=== PATIENT | male | born 1950 ===

== ENCOUNTER 2017-10-24 12:13 | Inpatient (IN) | payer MEDICARE ==
--- NOTE | 2017-10-24 12:36 | C.PDOC ---
History Of Present Illness 66 yr old male brought in via BLS, presents to the ER for possible witness seizure. Patient is accompanied by daughter who states the patient was in the living room and the seizure was witness was witness by the nephew. Daughter states the patient was on the sofa and started drooling and was not responding to questions but eventually started to come around but still didn't answer any questions. Patient is visiting from [facility] and doesn't have a PMD, smokes everyday and doesn't take any medications. Currently patient denies chest pain, SOB, nausea, vomiting, weakness or numbness. Patient is Italian speaking, information obtained via daughter. Time Seen by Provider: 10/24/17 12:19 Chief Complaint (Nursing): Seizure History Per: Patient, Family (Daughter) History/Exam Limitations: no limitations Recent Seizure Activity Began: Just Before Arrival Number Of Seizures: One Length Of Seizures (Duration): Unknown Past Medical History Reviewed: Historical Data, Nursing Documentation, Vital Signs Vital Signs: Last Vital Signs Temp 98 F 10/24/17 15:17 Pulse 60 10/24/17 17:00 Resp 16 10/24/17 17:00 BP 136/82 10/24/17 17:00 Pulse Ox 96 10/24/17 17:00 Family History: States: No Known Family Hx - Social History Hx Alcohol Use: Yes Hx Substance Use: No - Immunization History Hx Tetanus Toxoid Vaccination: No Hx Influenza Vaccination: No Hx Pneumococcal Vaccination: No Review Of Systems Except As Marked, All Systems Reviewed And Found Negative. Cardiovascular: Negative for: Chest Pain Respiratory: Negative for: Shortness of Breath Gastrointestinal: Negative for: Nausea, Vomiting Neurological: Negative for: Weakness, Numbness Physical Exam - Physical Exam Appears: Non-toxic, No Acute Distress Skin: Warm, Dry, No Rash Head: Atraumatic, Normacephalic Eye(s): bilateral: Normal Inspection, PERRL, EOMI Oral Mucosa: Moist Tongue: Normal Appearing, No Bite Lips: Normal Appearing Neck: Normal, Normal ROM, Supple Cardiovascular: Rhythm Regular, No Murmur Respiratory: Normal Breath Sounds, No Rales, No Rhonchi, No Stridor, No Wheezing Gastrointestinal/Abdominal: Normal Exam, Soft, No Tenderness, No Guarding, No Rebound Extremity: Normal ROM, No Swelling Neurological/Psych: Oriented x3, Normal Speech, Normal Motor, Normal Sensation ED Course And Treatment - Laboratory Results Result Diagrams: 10/24/17 12:59 10/24/17 12:59 ECG: Interpreted By Me, Viewed By Me ECG Rhythm: Sinus Rhythm (w/ 1st degree AV block) Rate From EC (BPM) O2 Sat by Pulse Oximetry: 99 (RA) Pulse Ox Interpretation: Normal Interpretation Of Abnormal: Normal intervals. No ST/T wave abnormalities. - Radiology CXR: Viewed By Me, Read By Radiologist CXR Interpretation: Yes: No Acute Disease - CT Scan/US CT - Head Other Rad Studies (CT/US): Read By Radiologist, Radiology Report Reviewed CT/US Interpretation: PROCEDURE: CT HEAD WITHOUT CONTRAST. HISTORY: seizure. COMPARISON: None available. TECHNIQUE: Axial computed tomography images were obtained through the head/brain without intravenous contrast. Radiation dose: Total exam DLP = 852.98 mGy-cm. This CT exam was performed using one or more of the following dose reduction techniques: Automated exposure control, adjustment of the mA and/or kV according to patient size, and/or use of iterative reconstruction technique. FINDINGS: HEMORRHAGE: No intracranial hemorrhage. BRAIN: No mass effect or edema. No atrophy or chronic microvascular ischemic changes. VENTRICLES: Unremarkable. No hydrocephalus. CALVARIUM: Unremarkable. PARANASAL SINUSES: Complete opacification of the left frontal sinus. Moderate mucosal thickening in the ethmoid sinuses. MASTOID AIR CELLS: Right mastoid and middle ear effusion suspicious for otomastoiditis P. OTHER FINDINGS: None. IMPRESSION: No evidence of acute intracranial hemorrhage intracranial collection mass effect or midline shift. Findings suggestive of sinusitis with complete opacification of the left frontal and partial opacification of the ethmoid sinuses. Effusion in the right mastoid and middle ear suspicious for otomastoiditis. CTA - Neck/Brain Other Rad Studies (CT/US): Read By Radiologist, Radiology Report Reviewed CT/US Interpretation: PROCEDURE: CT Angiography of the neck and Brain. HISTORY : seizure activity. COMPARISON: None available. TECHNIQUE: CT angiography of the intracranial arteries was performed. Coronal and sagittal maximum intensity projection reformated images were generated. This CT exam was performed using one or more of the following dose reduction techniques: Automated exposure control, adjustment of the mA and/or kV according to patient size, and/or use of iterative reconstruction technique. FINDINGS: CTA of the neck: The aortic arch demonstrate mild aneurysmal changes with the ascending thoracic aorta measures up to 4.5 centimeter in the transverse diameter. The main branches of the aortic arch are patent. There is common origin of the right brachiocephalic artery and left common carotid artery. The common carotid arteries are patent demonstrate normal shape. There are atherosclerotic calcifications seen at the left carotid bifurcation without evidence of significant stenosis. There is no evidence of significant stenosis in the cervical portion of the internal carotid arteries. Punctate calcification are noted at the petrous and cavernous as well at supraclinoid portion of the internal carotid arteries without evidence of significant stenosis. INTERNAL CEREBRAL ARTERIES: Suboptimal opacification of the intracranial arteries. The skull base, petrous, cavernous and supraclinoid segments are bilaterally widely patent. ANTERIOR CEREBRAL ARTERIES: A1 and A2 segments are patent. Smaller distal branches unremarkable, as visualized. MIDDLE CEREBRAL ARTERIES: Unremarkable. M1 and M2 segments are widely patent. Perisylvian branches grossly symmetric. POSTERIOR CIRCULATION: Basilar Artery : Unremarkable. Distal Vertebral Arteries: Unremarkable. Posterior Cerebral Arteries: There is a origin of the left posterior cerebral artery. Posterior Inferior Cerebellar Arteries: Unremarkable. ANEURYSM/ VASCULAR MALFORMATIONS: None. OTHER FINDINGS: None. IMPRESSION: Suboptimal study with suboptimal opacification of the carotid and intracranial arteries. No evidence of focal significant vascular stenosis or occlusion. [id number] atherosclerotic disease associated with scattered calcified plaques. Sinuses mucosal disease. Mild aneurysmal changes noted at the ascending thoracic aorta and aortic arch. Progress Note: 1500: patient is admited to hospitalist for new onset seizure. Case is discussed with Dr. Quevedo. Medical Decision Making Medical Decision Making: IMPRESSION: New onset seizure PLAN: * CT - Angiochest, Head * CXR * EKG * Troponin * CBC * CMP * Urinalysis Disposition Discussed With Dr.: Janet Benson Doctor Will See Patient In The: ED Counseled Patient/Family Regarding: Diagnosis - Disposition Disposition Time: 14:52 Condition: FAIR - Clinical Impression Clinical Impression: Seizure - Scribe Statement The provider has reviewed the documentation as recorded by the Emilyibgeovany Araiza Provider Attestation: All medical record entries made by the Emilyibgeovany were at my direction and personally dictated by me. I have reviewed the chart and agree that the record accurately reflects my personal performance of the history, physical exam, medical decision making, and the department course for this patient. I have also personally directed, reviewed, and agree with the discharge instructions and disposition.
[2017-10-24 13:02] LABS: BASO # 0.1 K/uL (0.0-0.2); BASO % 0.6 % (0.0-2.0); EOS # 0.1 K/uL (0.0-0.7); EOS % 0.8 % (0.0-4.0); HEMOGLOBIN 15.1 g/dL (12.0-18.0); LYMPH # 2.4 K/uL (1.0-4.3); LYMPH % 25.9 % (20.0-40.0); MEAN CELL VOLUME 96.9 fL (80.0-94.0); MEAN CORPUSCULAR HEMOGLOBIN 33.1 pg (27.0-31.0); MEAN CORPUSCULAR HGB CONC 34.1 g/dL (33.0-37.0); MEAN PLATELET VOLUME 7.7 fL (7.2-11.7); MONO # 0.6 K/uL (0.0-0.8); NEUT # 6.2 K/uL (1.8-7.0); NEUT % 66.7 % (50.0-75.0); NRBC % 0.1 % (0.0-2.0); RBC 4.57 Mil/uL (4.40-5.90); RED CELL DISTRIBUTION WIDTH 13.4 % (11.5-14.5); WHITE BLOOD COUNT 9.4 K/uL (4.8-10.8)
[2017-10-24 13:08] LABS: URINE BILIRUBIN NEGATIVE (NEGATIVE); URINE BLOOD NEGATIVE (NEGATIVE); URINE CLARITY Clear (Clear); URINE COLOR Yellow (YELLOW); URINE GLUCOSE (UA) NORMAL (Normal); URINE LEUKOCYTE ESTERASE NEG Leu/uL (Negative); URINE NITRATE NEGATIVE (NEGATIVE); URINE PROTEIN 2+ mg/dL (NEGATIVE); URINE UROBILINOGEN NORMAL mg/dL (0.2-1.0)
[2017-10-24 13:15] LABS: ALB/GLOB RATIO 1.3 (1.0-2.1); ALBUMIN 4.2 g/dL (3.5-5.0); ALT/SGPT 46 U/L (21-72); AST/SGOT 25 U/L (17-59); BLOOD UREA NITROGEN 15 mg/dL (9-20); CALCIUM 8.8 mg/dl (8.6-10.4); GFR AFRICAN-AMERICAN > 60; GFR NON-AFRICAN AMERICAN > 60
[2017-10-24] MEDS ORDERED: Iodixanol 320 MG/ML 100 ML BOTTLE IV ONE (13:35)
--- NOTE | 2017-10-24 14:34 | CT ---
PROCEDURE: CT HEAD WITHOUT CONTRAST. HISTORY: seizure COMPARISON: None available. TECHNIQUE: Axial computed tomography images were obtained through the head/brain without intravenous contrast. Radiation dose: Total exam DLP = 852.98 mGy-cm. This CT exam was performed using one or more of the following dose reduction techniques: Automated exposure control, adjustment of the mA and/or kV according to patient size, and/or use of iterative reconstruction technique. FINDINGS: HEMORRHAGE: No intracranial hemorrhage. BRAIN: No mass effect or edema. No atrophy or chronic microvascular ischemic changes. VENTRICLES: Unremarkable. No hydrocephalus. CALVARIUM: Unremarkable. PARANASAL SINUSES: Complete opacification of the left frontal sinus. Moderate mucosal thickening in the ethmoid sinuses. MASTOID AIR CELLS: Right mastoid and middle ear effusion suspicious for otomastoiditis P OTHER FINDINGS: None. IMPRESSION: No evidence of acute intracranial hemorrhage intracranial collection mass effect or midline shift. Findings suggestive of sinusitis with complete opacification of the left frontal and partial opacification of the ethmoid sinuses. Effusion in the right mastoid and middle ear suspicious for otomastoiditis.
--- NOTE | 2017-10-24 14:50 | CT ---
PROCEDURE: CT Angiography of the neck and Brain. HISTORY: seizure activity COMPARISON: None available. TECHNIQUE: CT angiography of the intracranial arteries was performed. Coronal and sagittal maximum intensity projection reformated images were generated. This CT exam was performed using one or more of the following dose reduction techniques: Automated exposure control, adjustment of the mA and/or kV according to patient size, and/or use of iterative reconstruction technique. FINDINGS: CTA of the neck: The aortic arch demonstrate mild aneurysmal changes with the ascending thoracic aorta measures up to 4.5 centimeter in the transverse diameter. The main branches of the aortic arch are patent. There is common origin of the right brachiocephalic artery and left common carotid artery. The common carotid arteries are patent demonstrate normal shape. There are atherosclerotic calcifications seen at the left carotid bifurcation without evidence of significant stenosis. There is no evidence of significant stenosis in the cervical portion of the internal carotid arteries. Punctate calcification are noted at the petrous and cavernous as well at supraclinoid portion of the internal carotid arteries without evidence of significant stenosis. INTERNAL CEREBRAL ARTERIES: Suboptimal opacification of the intracranial arteries. The skull base, petrous, cavernous and supraclinoid segments are bilaterally widely patent. ANTERIOR CEREBRAL ARTERIES: A1 and A2 segments are patent. Smaller distal branches unremarkable, as visualized. MIDDLE CEREBRAL ARTERIES: Unremarkable. M1 and M2 segments are widely patent. Perisylvian branches grossly symmetric. POSTERIOR CIRCULATION: Basilar Artery: Unremarkable. Distal Vertebral Arteries: Unremarkable. Posterior Cerebral Arteries: There is a origin of the left posterior cerebral artery Posterior Inferior Cerebellar Arteries: Unremarkable. ANEURYSM/ VASCULAR MALFORMATIONS: None. OTHER FINDINGS: None. IMPRESSION: Suboptimal study with suboptimal opacification of the carotid and intracranial arteries. No evidence of focal significant vascular stenosis or occlusion. [id number] atherosclerotic disease associated with scattered calcified plaques. Sinuses mucosal disease. Mild aneurysmal changes noted at the ascending thoracic aorta and aortic arch.
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
--- NOTE | 2017-10-24 17:08 | RAD ---
PROCEDURE: CHEST RADIOGRAPH, 1 VIEW HISTORY: Seizure COMPARISON: None available. FINDINGS: LUNGS: No evidence of focal infiltrate or consolidation in the lungs P PLEURA: No pneumothorax or pleural fluid seen. CARDIOVASCULAR: The cardiac silhouette is normal in size. Left-sided pacemaker is seen in place. OSSEOUS STRUCTURES: No significant abnormalities. VISUALIZED UPPER ABDOMEN: Normal. OTHER FINDINGS: None. IMPRESSION: No active disease.
[2017-10-24 18:27] LABS: BARBITURATES, UR NEGATIVE (NEGATIVE); BENZODIAZEPINES, UR NEGATIVE (NEGATIVE); OPIATES, UR NEGATIVE (NEGATIVE); PHENCYCLIDINE, UR NEGATIVE (NEGATIVE)
[2017-10-24 18:33] LABS: CK-MB 1.25 ng/mL (0.0-3.38); TROPONIN I 0.043 ng/mL (0.00-0.120)
[2017-10-24 18:38] LABS: PROLACTIN 8.7 ng/mL (3.7-17.9)
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
[2017-10-24 22:25] LABS: TROPONIN I 0.029 ng/mL (0.00-0.120)
[2017-10-24 22:27] LABS: CK-MB 1.58 ng/mL (0.0-3.38)
[2017-10-25 01:45] VITALS: RESP 20
[2017-10-25] MEDS ORDERED: Iodixanol 320 MG/ML 100 ML BOTTLE IV ONE (02:46)
--- NOTE | 2017-10-25 03:27 | CT ---
EXAM: CT Angiography Chest With Intravenous Contrast CLINICAL HISTORY: 66 years old, male; Signs and symptoms; Other: Elevated d dimer TECHNIQUE: Axial computed tomographic angiography images of the chest with intravenous contrast using pulmonary embolism protocol. All CT scans at this facility use one or more dose reduction techniques, viz.: automated exposure control; ma/kV adjustment per patient size (including targeted exams where dose is matched to indication; i.e. head); or iterative reconstruction technique. MIP reconstructed images were created and reviewed. Coronal and sagittal reformatted images were created and reviewed. CONTRAST: 100 mL of [id number] administered intravenously. COMPARISON: No relevant prior studies available. FINDINGS: Pulmonary arteries: No pulmonary embolism. Aorta: Ectasia of ascending thoracic aorta, up to 4.2 cm in diameter. Minimal atherosclerotic disease. Inferior vena cava: Retrograde filling of IVC and hepatic veins. Lungs: Mild mosaic pattern of lung parenchyma. Minimal interlobular septal thickening. Minimal peripheral atelectasis/scarring. Few pulmonary nodules, up to 0.5 cm. Pleural space: No significant effusion. No pneumothorax. Heart: No cardiomegaly. No significant pericardial effusion. Coronary artery calcifications. Bones/joints: No acute fracture. Soft tissues: Minimal gynecomastia. Lymph nodes: No pathologically enlarged lymph nodes. Gallbladder and bile ducts: Vicarious excretion of contrast. Kidneys and ureters: Mild stranding about kidneys, nonspecific. Probable large RIGHT renal cyst. Few probable small LEFT renal cysts. Probable small hyperdense LEFT renal cyst. Tubes, lines and devices: LEFT pacemaker. IMPRESSION: 1. No CT evidence of pulmonary embolism. 2. Possible early interstitial edema. Clinical correlation is needed. 3. Pulmonary nodules. For low-risk patients, no follow-up is necessary. For high-risk patients (smoking history or other known risk factors) an optional CT at 12 months could be performed. 4. Incidental/non-acute findings are described above.
--- NOTE | 2017-10-25 11:39 | VASCLAB ---
PROCEDURE: HISTORY: Syncope COMPARISON: None available. TECHNIQUE: Grayscale and duplex Doppler evaluation of the cervical carotid and vertebral arteries were performed. The common carotid, carotid bifurcations and cervical Internal Carotid Artery (ICA) and proximal External Carotid Artery (ECA) were evaluated. The vertebral arteries were evaluated for gross patency and flow direction. Report prepared by SKIP Sharma FINDINGS: RIGHT CAROTID ARTERIES: 1. Common Carotid Artery: No significant focal plaque formation of the right common carotid artery. Maximum Peak Systolic velocity: 187 cm/sec: End-diastolic velocity 20 cm/sec. 2. Carotid Bifurcation: Homogeneous plaque formation. Maximum Peak Systolic velocity: 61 cm/sec: End-diastolic velocity 10 cm/sec. 3. Internal Carotid Artery: Plaque description: 3.1. Proximal Segment: Peak systolic velocity 70 cm/sec: End-diastolic velocity 27 cm/sec - % stenosis 0-15% 3.2. Middle Segment: Peak systolic velocity 39 cm/sec: End-diastolic velocity 14 cm/sec - % stenosis 0-15% 3.3. Distal Segment: Peak systolic velocity 41 cm/sec: End-diastolic velocity 15 cm/sec - % stenosis 0-15% 4. External Carotid Artery: No significant focal plaque formation. Peak systolic velocity 77 cm/sec 5. ICA/CCA Ratio: 1.1 LEFT CAROTID ARTERIES: 1. Common Carotid Artery: No significant focal plaque formation of the left common carotid artery. Maximum Peak Systolic velocity: 117 cm/sec: End-diastolic velocity 22 cm/sec. 2. Carotid Bifurcation: Homogeneous plaque formation. Maximum Peak Systolic velocity: 53 cm/sec: End-diastolic velocity 9 cm/sec. 3. Internal Carotid Artery: Plaque description: 3.1. Proximal Segment: Peak systolic velocity 47 cm/sec: End-diastolic velocity 16 cm/sec - % stenosis 0-15% 3.2. Middle Segment: Peak systolic velocity 61 cm/sec: End-diastolic velocity 20 cm/sec - % stenosis 0-15% 3.3. Distal Segment: Peak systolic velocity 47 cm/sec: End-diastolic velocity 15 cm/sec - % stenosis 0-15% 4. External Carotid Artery: No significant focal plaque formation. Peak systolic velocity 100 cm/sec 5. ICA/CCA Ratio: 1.2 VERTEBRAL ARTERIES: 1. Right Vertebral Artery: The right vertebral artery flow direction is antegrade. 2. Left Vertebral Artery: The left vertebral artery flow direction is antegrade. OTHER FINDINGS: 1. Right Brachial Blood pressure: 120 mmHg. 2. Left Brachial Blood pressure: 120 mmHg. IMPRESSION: RIGHT: Duplex scan does not suggest hemodynamically significant stenosis of the right extracranial carotid arteries. LEFT: Duplex scan does not suggest hemodynamically significant stenosis of the left extracranial carotid arteries.
[2017-10-25 12:38] LABS: BASO # 0.1 K/uL (0.0-0.2); BASO % 0.8 % (0.0-2.0); EOS % 0.3 % (0.0-4.0); HEMOGLOBIN 14.5 g/dL (12.0-18.0); LYMPH # 2.9 K/uL (1.0-4.3); MEAN CELL VOLUME 96.4 fL (80.0-94.0); MEAN CORPUSCULAR HEMOGLOBIN 33.2 pg (27.0-31.0); MEAN CORPUSCULAR HGB CONC 34.4 g/dL (33.0-37.0); MEAN PLATELET VOLUME 8.3 fL (7.2-11.7); MONO # 0.6 K/uL (0.0-0.8); MONO % 5.3 % (0.0-10.0); NEUT # 7.1 K/uL (1.8-7.0); NEUT % 66.6 % (50.0-75.0); RBC 4.37 Mil/uL (4.40-5.90); RED CELL DISTRIBUTION WIDTH 13.2 % (11.5-14.5); WHITE BLOOD COUNT 10.6 K/uL (4.8-10.8)
--- NOTE | 2017-10-25 12:49 | CT ---
PROCEDURE: CT HEAD WITHOUT CONTRAST. HISTORY: new onset seizure COMPARISON: Noncontrast head CT performed 10/24/17 TECHNIQUE: Axial computed tomography images were obtained through the head/brain without intravenous contrast. Radiation dose: Total exam DLP = 805.76 mGy-cm. This CT exam was performed using one or more of the following dose reduction techniques: Automated exposure control, adjustment of the mA and/or kV according to patient size, and/or use of iterative reconstruction technique. FINDINGS: HEMORRHAGE: No intracranial hemorrhage. BRAIN: Diffuse atrophy with prominence of the ventricles and sulci noted. No mass effect or edema. Scattered periventricular and subcortical white matter hypodensities, which are nonspecific, but often seen with chronic microvascular ischemic disease. Please note that MRI with diffusion imaging is more sensitive in the detection of acute ischemic event. VENTRICLES: No hydrocephalus. CALVARIUM: Unremarkable. PARANASAL SINUSES: Fluid within the left frontal sinus and left anterior ethmoid air cells. The remainder the visualized paranasal sinuses appear unremarkable. MASTOID AIR CELLS: Partial opacification of the right mastoid air cells; correlate clinically for mastoiditis. OTHER FINDINGS: Probable small fluid within the right middle ear. IMPRESSION: Generalized atrophy. Nonspecific white matter changes. Partial opacification of the right mastoid air cells. Probable small fluid within the right middle ear. Correlate clinically for otomastoiditis. Fluid within the left frontal sinus and left anterior ethmoid air cells. Correlate clinically for acute sinusitis.
[2017-10-25 13:07] LABS: ALB/GLOB RATIO 1.3 (1.0-2.1); ALT/SGPT 34 U/L (21-72); AST/SGOT 24 U/L (17-59); BLOOD UREA NITROGEN 12 mg/dL (9-20); CALCIUM 8.4 mg/dl (8.6-10.4); GFR AFRICAN-AMERICAN > 60; GFR NON-AFRICAN AMERICAN > 60
[2017-10-25 16:32] VITALS: BP 129/78; PULSE 50; TEMP 98.1; O2SAT 96
--- NOTE | 2017-10-25 16:39 | CP.PCM.PN ---
Subjective - Date & Time of Evaluation Date of Evaluation: 10/25/17 Time of Evaluation: 16:37 - Subjective Subjective: Mr. Richmond was seen and examined at the bedside. He is alert. oriented in all spheres. He denies any headache, dizziness, lightheadedness, nausea, or vomiting. He is able to answer questions appropriately and follow simple commands such as finger to nose test, field accommodation, strength test. He denies any seizure-like activity. There was no untoward events overnight. Objective - Vital Signs/Intake and Output Vital Signs (last 24 hours): Temp Pulse Resp BP Pulse Ox 98.1 F 50 L 20 129/78 96 10/25/17 16:31 10/25/17 16:31 10/25/17 16:31 10/25/17 16:31 10/25/17 16:31 - Medications Medications: Current Medications Aspirin (Ecotrin) 81 mg PO DAILY [facility] Last Admin: 10/25/17 10:32 Dose: 81 mg Famotidine (Pepcid) 20 mg PO BID [facility] Last Admin: 10/25/17 10:33 Dose: 20 mg Heparin Sodium (Porcine) (Heparin) 5,000 units SC Q8 [facility] Last Admin: 10/25/17 14:17 Dose: 5,000 units Levetiracetam (Keppra) 500 mg PO BID [facility] Last Admin: 10/25/17 10:33 Dose: Not Given - Labs Labs: 10/25/17 12:31 10/25/17 12:31 - Constitutional Appears: No Acute Distress - Head Exam Head Exam: NORMAL INSPECTION - Neurological Exam Neurological Exam: Alert, Awake, CN II-XII Intact, Normal Gait, Oriented x3 Neuro motor strength exam: Left Upper Extremity: 5, Right Upper Extremity: 5, Left Lower Extremity: 5, Right Lower Extremity: 5 Additional comments: e is able to answer questions appropriately and follow simple commands such as finger to nose test, field accommodation, strength test. He is able to answer questions appropriately and follow simple commands such as finger to nose test, field accommodation, strength test. Sensation remains intact.
--- NOTE | 2017-10-25 19:11 | CP.PCM.DIS ---
<Devon Taylor - Last Filed: 10/25/17 19:01> Provider - Provider Date of Admission: 10/24/17 18:44 Attending physician: Janet Benson MD Consults: Cardio - Dr. Yañez Neuro - Dr. Quevedo Time Spent in preparation of Discharge (in minutes): 45 Hospital Course - Lab Results Lab Results: Most Recent Lab Values WBC 10.6 K/uL (4.8-10.8) 10/25/17 12:31 RBC 4.37 Mil/uL (4.40-5.90) L 10/25/17 12:31 Hgb 14.5 g/dL (12.0-18.0) 10/25/17 12:31 Hct 42.1 % (35.0-51.0) 10/25/17 12:31 MCV 96.4 fL (80.0-94.0) H 10/25/17 12:31 MCH 33.2 pg (27.0-31.0) H 10/25/17 12:31 MCHC 34.4 g/dL (33.0-37.0) 10/25/17 12:31 RDW 13.2 % (11.5-14.5) 10/25/17 12:31 Plt Count 210 K/uL (130-400) 10/25/17 12:31 MPV 8.3 fL (7.2-11.7) 10/25/17 12:31 Neut % (Auto) 66.6 % (50.0-75.0) 10/25/17 12: Lymph % (Auto) 27.0 % (20.0-40.0) 10/25/17 12:31 [place] % (Auto) 5.3 % (0.0-10.0) 10/25/17 12:31 Eos % (Auto) 0.3 % (0.0-4.0) 10/25/17 12:31 Baso % (Auto) 0.8 % (0.0-2.0) 10/25/17 12:31 Neut # 7.1 K/uL (1.8-7.0) H 10/25/17 12:31 Lymph # 2.9 K/uL (1.0-4.3) 10/25/17 12:31 [place] # 0.6 K/uL (0.0-0.8) 10/25/17 12:31 Eos # 0.0 K/uL (0.0-0.7) 10/25/17 12:31 Baso # 0.1 K/uL (0.0-0.2) 10/25/17 12:31 D-Dimer, Quantitative 446 ng/mlDDU (0-243) H 10/25/17 01:43 Sodium 133 mmol/L (132-148) 10/25/17 12:31 Potassium 4.2 mmol/L (3.6-5.2) 10/25/17 12:31 Chloride 99 mmol/L (98-107) 10/25/17 12:31 Carbon Dioxide 25 mmol/L (22-30) 10/25/17 12:31 Anion Gap 13 (10-20) 10/25/17 12:31 BUN 12 mg/dL (9-20) 10/25/17 12:31 Creatinine 0.8 mg/dL (0.8-1.5) 10/25/17 12:31 Est GFR ( Amer) > 60 10/25/17 12:31 Est GFR (Non-Af Amer) > 60 10/25/17 12:31 POC Glucose (mg/dL) 128 mg/dL (65-110) H 10/24/17 20:53 Random Glucose 120 mg/dL (75-110) H 10/25/17 12:31 Hemoglobin A1c 5.8 % (4.2-6.5) 10/25/17 12:31 Calcium 8.4 mg/dl (8.6-10.4) L 10/25/17 12:31 Total Bilirubin 0.9 mg/dL (0.2-1.3) 10/25/17 12:31 AST 24 U/L (17-59) 10/25/17 12:31 ALT 34 U/L (21-72) 10/25/17 12:31 Alkaline Phosphatase 81 U/L (38-126) 10/25/17 12:31 Total Creatine Kinase 88 U/L (55-170) 10/24/17 21:58 CK-MB (Mass) 1.58 ng/mL (0.0-3.38) 10/24/17 21:58 Troponin I 0.0290 ng/mL (0.00-0.120) 10/24/17 21:58 Total Protein 6.9 g/dL (6.3-8.3) 10/25/17 12:31 Albumin 4.0 g/dL (3.5-5.0) 10/25/17 12:31 Globulin 2.9 gm/dL (2.2-3.9) 10/25/17 12:31 Albumin/Globulin Ratio 1.3 (1.0-2.1) 10/25/17 12:31 Triglycerides 90 mg/dL (0-149) 10/25/17 12:31 Cholesterol 189 mg/dL (0-199) 10/25/17 12:31 LDL Cholesterol Direct 142 mg/dL (0-129) H 10/25/17 12:31 HDL Cholesterol 31 mg/dL (30-70) 10/25/17 12:31 Free T4 1.01 ng/dL (0.78-2.19) 10/25/17 12:31 TSH 3rd Generation 1.22 mIU/L (0.46-4.68) 10/25/17 12:31 Prolactin 8.7 ng/mL (3.7-17.9) 10/24/17 17:57 Urine Color Yellow (YELLOW) 10/24/17 12:59 Urine Clarity Clear (Clear) 10/24/17 12:59 Urine pH 6.0 (5.0-8.0) 10/24/17 12:59 Ur Specific Robinson 1.016 (1.003-1.030) 10/24/17 12:59 Urine Protein 2+ mg/dL (NEGATIVE) H 10/24/17 12:59 Urine Glucose (UA) Normal mg/dL (Normal) 10/24/17 12:59 Urine Ketones Negative mg/dL (NEGATIVE) 10/24/17 12:59 Urine Blood Negative (NEGATIVE) 10/24/17 12:59 Urine Nitrate Negative (NEGATIVE) 10/24/17 12:59 Urine Bilirubin Negative (NEGATIVE) 10/24/17 12:59 Urine Urobilinogen Normal mg/dL (0.2-1.0) 10/24/17 12:59 Ur Leukocyte Esterase Neg Suzy/uL (Negative) 10/24/17 12:59 Urine WBC (Auto) 2 /hpf (0-5) 10/24/17 12:59 Urine RBC (Auto) 3 /hpf (0-3) 10/24/17 12:59 Hyaline Casts 3-5 /lpf (0-2) H 10/24/17 12:59 Urine Opiates Screen Negative (NEGATIVE) 10/24/17 18:01 Urine Methadone Screen Negative (NEGATIVE) 10/24/17 18:01 Ur Barbiturates Screen Negative (NEGATIVE) 10/24/17 18:01 Ur Phencyclidine Scrn Negative (NEGATIVE) 10/24/17 18:01 Ur Amphetamines Screen Negative (NEGATIVE) 10/24/17 18:01 U Benzodiazepines Scrn Negative (NEGATIVE) 10/24/17 18:01 U Oth Cocaine Metabols Negative (NEGATIVE) 10/24/17 18:01 U Cannabinoids Screen Negative (NEGATIVE) 10/24/17 18:01 - Hospital Course Hospital Course: CC: Syncope vs Seizure Patient is a 66 yo generally healthy [place] male presenting with an episode of altered mental status. According to the patient's daughter, the patient was resting on the sofa when he started foaming at the mouth During this episode, he was unresponsive to basic commands and it seemed to the patient's daughter hewas trying to push people away, which the daughter believed was involuntary. This episode lasted approximately 5 minutes after which patient was confused for about 10 minutes and then resumed his baseline level of consciousness. Patient states that currently he feels fine and this has never happened to him before. Patient denies urinary/bowel incontinence, chest pain, N/V, weakness, numbness. Patient's mother had a history of an unspecified syncope disorder where she would intermittently "pass out," especially during stressful time periods. However, she at the age of 90 and was otherwise unaffected by these syncopal episodes. Patient's daughter says his father had a pacemaker placed in 2002 because he "passed out". Patient was started on Keppra. Carotid US showed no stenosis, CT chest was negative for PE. Head/Neck CTA showed no significant stenosis or occlusion, mild to moderate artherosclerosis, and mild thoracic aneurysm. ECHO results still pending. Patient has been told to follow up with machine mover at [facility] to check on pacemaker/defibrillator. EKG showed sinus bradycardia. Episode was likely from a seizure. Patient has had no symptoms since admission. He is stable for discharge per medicine and neurology team. Patient sent home with the following instructions: 1). Please have the following prescriptions filled at your Pharmacy: Aspirin 81 mg, 1 tablet by mouth 1x/day (breakfast), Disp #30, NO refills Keppra 500 mg, 1 tablet by mouth 2x/day (breakfast and dinner), Disp #30, NO refills 2). You CAN NOT drive a car until you are cleared by a Neurologist. 3). You must follow up with your Collaborating Supervising Physician at [facility] as soon as possible PRIOR to your return to [facility] this coming Wednesday for a check of your Pacemaker/Defibrillator as your Daughter has stated that you failed to follow for check/change of battery for over 7 years. 4). You will need to be followed by your Primary Care Physician in [place] for the following: Consultation with Ear, Nose and Throat physician for further evaluation of Sinusitis/Mastoiditis Consultation with Vascular Surgeon for repeat of CT Scan of Chest in 6 months to make sure that the Thoracic Aneurysm has not grown in size You will also need a repeat CT Scan of Chest in 6 months to make sure that the nodules in your lungs have not changed considering your long history of smoking. Consultation with Neurologist to make sure that you are seizure free PRIOR to driving a car again. 5). You have been provided with a copy of the reports for all of your radiology studies. Please bring these with you to your appointment with your primary care physician in [facility]. 6). You must stop smoking. 7). Please take care and be well - Date & Time of H&P Date of H&P: 10/25/17 Time of H&P: 12:00 Discharge Exam - Head Exam Head Exam: ATRAUMATIC, NORMAL INSPECTION, NORMOCEPHALIC - Eye Exam Eye Exam: EOMI, Normal appearance Pupil Exam: PERRL - ENT Exam ENT Exam: Mucous Membranes Moist - Respiratory Exam Respiratory Exam: Clear to PA & Lateral. absent: Rales, Rhonchi, Wheezes - Cardiovascular Exam Cardiovascular Exam: RRR, +S1, +S2 - GI/Abdominal Exam GI & Abdominal Exam: Normal Bowel Sounds, Soft. absent: Tenderness - Extremities Exam Extremities exam: normal capillary refill, normal inspection - Neurological Exam Neurological exam: Alert, Oriented x3 - Psychiatric Exam Psychiatric exam: Normal Affect, Normal Mood - Skin Skin Exam: Dry, Intact, Normal Color, Warm Discharge Plan - Discharge Medications Prescriptions: Aspirin [Ecotrin] 81 mg PO DAILY #30 tabec levETIRAcetam [Keppra] 500 mg PO BID #60 tab - Follow Up Plan Condition: FAIR Disposition: HOME/ ROUTINE Instructions: Aspirin (By mouth), Levetiracetam (By mouth), New-Onset Seizure in Adults (DC) Additional Instructions: 1). Please have the following prescriptions filled at your Pharmacy: Aspirin 81 mg, 1 tablet by mouth 1x/day (breakfast), Disp #30, NO refills Keppra 500 mg, 1 tablet by mouth 2x/day (breakfast and dinner), Disp #30, NO refills 2). You CAN NOT drive a car until you are cleared by a Neurologist. 3). You must follow up with your Collaborating Supervising Physician at [facility] as soon as possible PRIOR to your return to [facility] this coming Wednesday for a check of your Pacemaker/Defibrillator as your Daughter has stated that you failed to follow for check/change of battery for over 7 years. 4). You will need to be followed by your Primary Care Physician in [facility] for the following: Consultation with Ear, Nose and Throat physician for further evaluation of Sinusitis/Mastoiditis Consultation with Vascular Surgeon for repeat of CT Scan of Chest in 6 months to make sure that the Thoracic Aneurysm has not grown in size You will also need a repeat CT Scan of Chest in 6 months to make sure that the nodules in your lungs have not changed considering your long history of smoking. Consultation with Neurologist to make sure that you are seizure free PRIOR to driving a car again. 5). You have been provided with a copy of the reports for all of your radiology studies. Please bring these with you to your appointment with your primary care physician in [place]. 6). You must stop smoking. 7). Please take care and be well. Referrals: Rolando Quevedo MD [Staff Provider] - <Samir Wheeler - Last Filed: 10/25/17 21:56> Provider - Provider Date of Admission: 10/24/17 18:44 Attending physician: Janet Benson MD Hospital Course - Lab Results Lab Results: Most Recent Lab Values WBC 10.6 K/uL (4.8-10.8) 10/25/17 12:31 RBC 4.37 Mil/uL (4.40-5.90) L 10/25/17 12:31 Hgb 14.5 g/dL (12.0-18.0) 10/25/17 12:31 Hct 42.1 % (35.0-51.0) 10/25/17 12:31 MCV 96.4 fL (80.0-94.0) H 10/25/17 12:31 MCH 33.2 pg (27.0-31.0) H 10/25/17 12:31 MCHC 34.4 g/dL (33.0-37.0) 10/25/17 12:31 RDW 13.2 % (11.5-14.5) 10/25/17 12:31 Plt Count 210 K/uL (130-400) 10/25/17 12:31 MPV 8.3 fL (7.2-11.7) 10/25/17 12:31 Neut % (Auto) 66.6 % (50.0-75.0) 10/25/17 12:31 Lymph % (Auto) 27.0 % (20.0-40.0) 10/25/17 12:31 [place] % (Auto) 5.3 % (0.0-10.0) 10/25/17 12:31 Eos % (Auto) 0.3 % (0.0-4.0) 10/25/17 12:31 Baso % (Auto) 0.8 % (0.0-2.0) 10/25/17 12:31 Neut # 7.1 K/uL (1.8-7.0) H 10/25/17 12:31 Lymph # 2.9 K/uL (1.0-4.3) 10/25/17 12:31 [place] # 0.6 K/uL (0.0-0.8) 10/25/17 12:31 Eos # 0.0 K/uL (0.0-0.7) 10/25/17 12:31 Baso # 0.1 K/uL (0.0-0.2) 10/25/17 12:31 D-Dimer, Quantitative 446 ng/mlDDU (0-243) H 10/25/17 01:43 Sodium 133 mmol/L (132-148) 10/25/17 12:31 Potassium 4.2 mmol/L (3.6-5.2) 10/25/17 12:31 Chloride 99 mmol/L (98-107) 10/25/17 12:31 Carbon Dioxide 25 mmol/L (22-30) 10/25/17 12:31 Anion Gap 13 (10-20) 10/25/17 12:31 BUN 12 mg/dL (9-20) 10/25/17 12:31 Creatinine 0.8 mg/dL (0.8-1.5) 10/25/17 12:31 Est GFR ( Amer) > 60 10/25/17 12:31 Est GFR (Non-Af Amer) > 60 10/25/17 12:31 POC Glucose (mg/dL) 128 mg/dL (65-110) H 10/24/17 20:53 Random Glucose 120 mg/dL (75-110) H 10/25/17 12:31 Hemoglobin A1c 5.8 % (4.2-6.5) 10/25/17 12:31 Calcium 8.4 mg/dl (8.6-10.4) L 10/25/17 12:31 Total Bilirubin 0.9 mg/dL (0.2-1.3) 10/25/17 12:31 AST 24 U/L (17-59) 10/25/17 12:31 ALT 34 U/L (21-72) 10/25/17 12:31 Alkaline Phosphatase 81 U/L (38-126) 10/25/17 12:31 Total Creatine Kinase 88 U/L (55-170) 10/24/17 21:58 CK-MB (Mass) 1.58 ng/mL (0.0-3.38) 10/24/17 21:58 Troponin I 0.0290 ng/mL (0.00-0.120) 10/24/17 21:58 Total Protein 6.9 g/dL (6.3-8.3) 10/25/17 12:31 Albumin 4.0 g/dL (3.5-5.0) 10/25/17 12:31 Globulin 2.9 gm/dL (2.2-3.9) 10/25/17 12:31 Albumin/Globulin Ratio 1.3 (1.0-2.1) 10/25/17 12:31 Triglycerides 90 mg/dL (0-149) 10/25/17 12:31 Cholesterol 189 mg/dL (0-199) 10/25/17 12:31 LDL Cholesterol Direct 142 mg/dL (0-129) H 10/25/17 12:31 HDL Cholesterol 31 mg/dL (30-70) 10/25/17 12:31 Free T4 1.01 ng/dL (0.78-2.19) 10/25/17 12:31 TSH 3rd Generation 1.22 mIU/L (0.46-4.68) 10/25/17 12:31 Prolactin 8.7 ng/mL (3.7-17.9) 10/24/17 17:57 Urine Color Yellow (YELLOW) 10/24/17 12:59 Urine Clarity Clear (Clear) 10/24/17 12:59 Urine pH 6.0 (5.0-8.0) 10/24/17 12:59 Ur Specific Robinson 1.016 (1.003-1.030) 10/24/17 12:59 Urine Protein 2+ mg/dL (NEGATIVE) H 10/24/17 12:59 Urine Glucose (UA) Normal mg/dL (Normal) 10/24/17 12:59 Urine Ketones Negative mg/dL (NEGATIVE) 10/24/17 12:59 Urine Blood Negative (NEGATIVE) 10/24/17 12:59 Urine Nitrate Negative (NEGATIVE) 10/24/17 12:59 Urine Bilirubin Negative (NEGATIVE) 10/24/17 12:59 Urine Urobilinogen Normal mg/dL (0.2-1.0) 10/24/17 12:59 Ur Leukocyte Esterase Neg Suzy/uL (Negative) 10/24/17 12:59 Urine WBC (Auto) 2 /hpf (0-5) 10/24/17 12:59 Urine RBC (Auto) 3 /hpf (0-3) 10/24/17 12:59 Hyaline Casts 3-5 /lpf (0-2) H 10/24/17 12:59 Urine Opiates Screen Negative (NEGATIVE) 10/24/17 18:01 Urine Methadone Screen Negative (NEGATIVE) 10/24/17 18:01 Ur Barbiturates Screen Negative (NEGATIVE) 10/24/17 18:01 Ur Phencyclidine Scrn Negative (NEGATIVE) 10/24/17 18:01 Ur Amphetamines Screen Negative (NEGATIVE) 10/24/17 18:01 U Benzodiazepines Scrn Negative (NEGATIVE) 10/24/17 18:01 U Oth Cocaine Metabols Negative (NEGATIVE) 10/24/17 18:01 U Cannabinoids Screen Negative (NEGATIVE) 10/24/17 18:01 Attending/Attestation - Attestation I have personally seen and examined this patient.: Yes I have fully participated in the care of the patient.: Yes I have reviewed all pertinent clinical information, including history, physical exam and plan: Yes Notes (Text): 10/25/17 21:55 Exam, assessment and plan and discharge instructions were thoroughly gone over with the resident. I went over the instructions with patient's daughter at length. Samir Wheeler D.O.
--- NOTE | 2017-10-25 21:07 | CARD ---
APPROVED REPORT EXAM: Two-dimensional and M-mode echocardiogram with Doppler and color Doppler. Other Information Quality : GoodRhythm : INDICATION Syncope Surgery/Intervention Pacemaker: 2D DIMENSIONS IVSd0.8 (0.7-1.1cm)LVDd4.9 (3.9-5.9cm) LVOT Diameter2.4 (1.8-2.4cm)PWd0.9 (0.7-1.1cm) LVDs2.5 (2.5-4.0cm)FS (%) 47.8 % LVEF (%)79.1 (>50%) M-Mode DIMENSIONS Left Atrium (MM)3.69 (2.5-4.0cm)Aortic Root3.53 (2.2-3.7cm) Aortic Cusp Exc.2.03 (1.5-2.0cm) Aortic Valve AoV Peak Xcysvkkp896.9cm/sAoV VTI52.2cmAO Peak GR.20mmHg LVOT Peak Nzeeqenx417.1cm/sLVOT VTI28.00cmAO Mean GR.10mmHg PAULA (VMAX)2.49ht0QES (VTI)2.73lu3VD P 1/2 [id number] Mitral Valve MV E Nusmqroq12.3cm/sMV A Jsggbeop66.8cm/sE/A ratio1.3 TDI E/Lateral E'0.0E/Medial E'0.0 Tricuspid Valve TR Peak Ypqoaicj205os/sTR Peak Gr.91jvQzOESP27blGd LEFT VENTRICLE The left ventricle is normal size. There is normal left ventricular wall thickness. Left ventricle systolic function is normal. The Ejection Fraction is >70%. There is normal LV segmental wall motion. The left ventricular diastolic function is normal. No left ventricle thrombus noted on this study. RIGHT VENTRICLE The right ventricle is normal size. The right ventricular systolic function is normal. There is a pacemaker lead in the right ventricle. ATRIA The left atrium size is normal. The right atrium size is normal. AORTIC VALVE The aortic valve is mildly to moderately sclerotic. The aortic valve is trileaflet. There is mild aortic regurgitation. There is no aortic valvular stenosis. MITRAL VALVE Mitral annular calcification is mild. There is no evidence of mitral valve prolapse. There is no mitral valve stenosis. Mitral regurgitation is mild. TRICUSPID VALVE The tricuspid valve is normal in structure. There is mild tricuspid regurgitation. Right ventricular systolic pressure is estimated at 30-40 mmHg. There is no pulmonary hypertension. There is no tricuspid valve prolapse or vegetation. There is no tricuspid valve stenosis. PULMONIC VALVE The pulmonary valve is normal in structure. There is trace to mild pulmonic valvular regurgitation. There is no pulmonic valvular stenosis. GREAT VESSELS There is mild aortic root dilatation. The IVC is normal in size and collapses >50% with inspiration. PERICARDIAL EFFUSION There is no pericardial effusion. There is no pleural effusion. <Conclusion> The left ventricle is normal size. Left ventricle systolic function is normal with Ejection Fraction of >70%.. The left ventricular diastolic function is normal. The right ventricle is normal size. The right ventricular systolic function is normal. There is a pacemaker lead in the right ventricle. The left atrium size is normal. The right atrium size is normal. There is mild aortic regurgitation. Mitral regurgitation is mild. There is mild tricuspid regurgitation. There is trace to mild pulmonic valvular regurgitation.
--- NOTE | 2017-10-26 00:03 | CARD ---
APPROVED REPORT EKG Measurement Heart [id number] ID [id number] <Conclusion> Sinus bradycardia Otherwise normal ECG
--- NOTE | 2017-10-26 00:03 | CARD ---
APPROVED REPORT EKG Measurement Heart [id number] <Conclusion> Sinus bradycardia with 1st degree AV block Otherwise normal ECG
--- NOTE | 2017-10-26 00:04 | CARD ---
APPROVED REPORT EKG Measurement Heart [id number] <Conclusion> Sinus rhythm with 1st degree AV block Otherwise normal ECG
--- NOTE | 2017-10-26 16:33 | PCM.EEG ---
Electroencephalogram Report - Electroencephalogram Report Procedure Date: 10/25/17 Interpretation: Indication: Seizure. Medications were reviewed. Technical: This is a digitally recorded electroencephalogram. The international 10-20 electrode placement system is used for scalp electrode placement. Eighteen channels of scalp EEG are recorded One channel was used for EOG. Another channel was used for for ECG. The data are stored digitally and reviewed in reformatted montages for optimal display. Background: 9 to 10 hertz alpha activity was seen. Maximal over the posterior head region. These activities are symmetric on both sides. They attenuated with eye opening. Small amount of beta activities are seen. Diffuse slowing was noted. Impression: This is a normal awake and asleep EEG. No focal slowing no seizure like activity was observed. Correlation with clinical findings is needed.
== END 2017-10-25 17:08 | disposition home or self-care (01) | DRG 101 ==
LOC: C.ER 12:13 → C.9E 14:51 → UNDOADMIN 14:51 → C.9E 18:44 → C.6T 23:27
PROVIDERS: ADMIT Internal Medicine; ATTEND Internal Medicine
DX: R56.9 Unspecified convulsions (principal); R55 Syncope and collapse; R41.82 Altered mental status, unspecified; H70.91 Unspecified mastoiditis, right ear; I44.30 Unspecified atrioventricular block; F17.210 Nicotine dependence, cigarettes, uncomplicated; Z79.82 Long term (current) use of aspirin; Z95.0 Presence of cardiac pacemaker